=== PATIENT | female | born 1965 | race Caucasian/White ===

== ENCOUNTER 2019-09-25 14:32 | Emergency (ER) | payer OTHER ==
[~2019-09-25] VITALS: Ht 170.2 cm; Wt 66.7 kg
== END 2019-09-25 19:23 | disposition home or self-care (01) ==
LOC: ER 14:32
DX: S00.83XA Contusion of other part of head, initial encounter (principal); S30.0XXA Contusion of lower back and pelvis, initial encounter; S30.1XXA Contusion of abdominal wall, initial encounter; R51 Headache; W18.2XXA Fall in (into) shower or empty bathtub, initial encounter; Y93.E1 Activity, personal bathing and showering; Y92.012 Bathroom of single-family (private) house as the place of occurrence of the external cause; Y99.8 Other external cause status

== ENCOUNTER 2020-07-27 14:30 | Emergency (ER) | payer OTHER ==
[~2020-07-27] VITALS: Ht 167.6 cm; Wt 64.4 kg
[2020-07-27] MEDS ORDERED: CLEOCIN HCL150 MG (14:55)
[2020-08-02] MEDS ORDERED: HIBICLENS118 ML TOP (08:32)
[2020-08-02] MEDS ORDERED: CLEOCIN HCL300 MG PO (08:32)
== END 2020-07-27 19:25 | disposition home or self-care (01) ==
LOC: ER 14:30
DX: L02.413 Cutaneous abscess of right upper limb (principal)

== ENCOUNTER → 2020-08-02 | Emergency (ER) | payer OTHER ==
[~2020-08-02] VITALS: Ht 167.6 cm; Wt 64.4 kg
[~2020-08-02] MED LIST: CLEOCIN HCL150 MG; CLEOCIN HCL300 MG PO; HIBICLENS118 ML TOP
== END | disposition home or self-care (01) ==
LOC: ER 06:44
DX: Z48.02 Encounter for removal of sutures (principal)

== ENCOUNTER 2021-09-04 05:43 | Emergency (ER) | payer OTHER ==
[~2021-09-04] VITALS: Ht 167.6 cm; Wt 63.5 kg
== END 2021-09-04 10:38 | disposition home or self-care (01) ==
LOC: ER 05:43
DX: U07.1 COVID-19 (principal); R06.02 Shortness of breath

== ENCOUNTER 2022-12-20 13:34 | Emergency (ER) | payer OTHER ==
[~2022-12-20] VITALS: Ht 170.2 cm; Wt 66.2 kg
== END 2022-12-20 18:06 | disposition home or self-care (01) ==
LOC: ER 13:34
DX: J06.9 Acute upper respiratory infection, unspecified (principal)

== ENCOUNTER 2024-03-26 09:32 | Emergency (ER) | payer OTHER ==
[~2024-03-26] VITALS: Ht 170.2 cm; Wt 67.6 kg
[2024-03-26] MEDS ORDERED: BUTALB/ACETAMINOPHEN/CAFFEINE 1 TAB TABLET PO ONE (10:30)
[2024-03-26] MEDS ORDERED: DIPHENHYDRAMINE HCL 50 MG/ML VIAL 1ML IM ONE (10:30)
[2024-03-26 10:42] LABS: HEMATOCRIT 43.5 % (36.0-45.00); MEAN CORPUSCULAR HEMOGLOBIN 30.1 pg (27.00-32.0); MEAN CORPUSCULAR HGB CONC 34.6 g/dl (32.0-36.0); PLATELET COUNT 183 K/uL (150-450); RED BLOOD COUNT 4.99 M/uL (4.00-6.00); RED CELL DISTRIBUTION WIDTH 13.7 % (11.5-14.5)
[2024-03-26 11:09] LABS: ALBUMIN 3.2 gm/dL (3.4-5.0); BILIRUBIN TOTAL 0.34 mg/dL (0.3-1.2); CREATININE SERUM 0.99 mg/dL (0.55-1.02); GFR 57.81; GLOBULINA 3.9 G/DL (2.4-3.5); POTASSIUM 3.89 mEq/L (3.5-5.1); TOTAL PROTEIN 7.1 gm/dL (6.4-8.2)
[2024-03-26] MEDS ORDERED: BUTALB-ACETAMI1 EAC2 PO (11:25)
== END 2024-03-26 11:36 | disposition home or self-care (01) ==
LOC: ER 09:34
PROVIDERS: General Practice
DX: B34.9 Viral infection, unspecified (principal); R21 Rash and other nonspecific skin eruption; Z20.822 Contact with and (suspected) exposure to COVID-19